=== PATIENT | male | born 1960 | race Caucasian/White ===

== ENCOUNTER → 2020-08-24 13:46 | Outpatient (BNVA) | payer OTHER, SELFPAY | PROVIDERS: Visit Provider Physician Assistant Medical | DX: M20.012 Mallet finger of left finger(s) (principal); S62.605A Fracture of unspecified phalanx of left ring finger, initial encounter for closed fracture; W23.0XXA Caught, crushed, jammed, or pinched between moving objects, initial encounter | CPT/HCPCS: 73130; 99203 ==

== ENCOUNTER 2020-08-25 08:46 | Outpatient (RCR) | payer OTHER, SELFPAY | END 2020-10-10 10:09 | disposition other institution (70) | LOC: HO.OT 08:46 | PROVIDERS: PCP Internal Medicine; Visit Provider Internal Medicine | DX: S62.605D Fracture of unspecified phalanx of left ring finger, subsequent encounter for fracture with routine healing (principal) | CPT/HCPCS: 97165; 97168; 97760 ==

== ENCOUNTER → 2020-09-07 10:51 | Outpatient (BNVA) | payer OTHER, SELFPAY | PROVIDERS: PCP Internal Medicine; Visit Provider Internal Medicine | DX: S62.605A Fracture of unspecified phalanx of left ring finger, initial encounter for closed fracture (principal); X58.XXXA Exposure to other specified factors, initial encounter | CPT/HCPCS: 99213 ==

== ENCOUNTER → 2020-10-07 07:59 | Outpatient (BNVA) | payer OTHER, SELFPAY | PROVIDERS: PCP Internal Medicine; Visit Provider Internal Medicine | DX: S62.605D Fracture of unspecified phalanx of left ring finger, subsequent encounter for fracture with routine healing (principal); X58.XXXD Exposure to other specified factors, subsequent encounter | CPT/HCPCS: 99213 ==

== ENCOUNTER 2020-10-12 08:41 | Outpatient (RCR) | payer OTHER, BC, SELFPAY ==
--- NOTE | 2020-10-12 10:34 | MHC.OT.DC ---
[address] [phone] F: [phone] Occupational Therapy Discharge Note Provider: DR. REID Diagnosis: LEFT RING MALLET INJURY Date of Surgery: Date of Evaluation: 10/12/20 Date of Discharge: 10/12/20 Treatments to Date: 1 Cancellations to Date: No Shows to Date: Discharge Status: Insurance Declined Tx Patient Elected to Stop Discharge Summary: Pt EVALUATED TODAY AND PRACTICE WITH SELF ROM, MONITORING FOR EXT LAG AND INSTRUCTION ON WEANING FROM THE PROTECTIVE SPLINT. HE DEMONSTRATED INDEP WITH SELF MANAGEMENT AFTER INSTRUCTION AND PRACTICE. I ANTICIPATE CONTINUED IMPROVEMENT WITH SELF MANAGEMENT. Electronically Signed By: LIDA WILLIAM OT CHT CLT Reviewed/agree with student documentation: N/A Therapist: Please Sign and return to therapist, thank you for your referral.
--- NOTE | 2020-10-12 10:35 | MHC.OT.OEV ---
[address] [phone] F: [phone] Occupational Therapy Evaluation Diagnosis: LEFT RING MALLET INJURY Date of Onset: 08/23/21 Date of Surgery: Attending Provider: DR. REID Prescribed Treatment: EVAL AND TREAT MD Follow Up Appointment: History of Current Condition: Pt HAD A LEFT HAND CRUSH INJURY TO RING FINGER RESULTING IN A MALLET FINGER. PT SEEN BY OT AND FITTED WITH A CUSTOM MALLET SPLINT. Pt COMPLIANT WITH SPLINT IMMOB AND NOW READY TO BEGIN WEANING FROM THE SPLINT AND PROGRESS ROM. 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 Sleep: WNL Driving: WNL Vision: WNL Balance: WNL Pain Assessment Pain Score: 1 Pain Scale Used: Numeric (0 - 10) Pain Location and Description: L RF PRESSURE Aggravating Factors: BENDING RING FINGER Alleviating Factors: NA Skin and Soft Tissue Assessment Skin and Soft Tissue: Comments: L RF DIP J OA CHANGES Nerve assessment Ulnar Nerve: Median Nerve: Radial Nerve: Comments: WNL Sensory Assessment Temperature: Light Touch: WNL Proprioception: Vibration: Comments: Edema Assessment Upper Extremity: WNL Lower Extremity: Comments: Dexterity Assessment Dexterity: Comments: FDT WNL 22 SEC MILD DIFF WRITING WITH RF SLIGHT EXT Special Tests Comments: AROM(PROM) Strength Cervical Cervical Flexion: Cervical Extension: Cervical Lateral Flexion: Cervical Rotation: Comments: Shoulder Flexion: Extension: Abduction: Internal Rotation: External Rotation: Comments: Flexion: Extension: Abduction: Internal Rotation: External Rotation: Comments: Elbow Flexion: Extension: Pronation: Supination: Comments: Flexion: Extension: Pronation: Supination: Comments: Wrist Flexion: Extension: Ulnar Deviation: Radial Deviation: Comments: Flexion: Extension: Ulnar Deviation: Radial Deviation: Comments: Thumb Thumb CMC Flexion: Thumb MCP Flexion: Thumb IP Flexion: Radial Abduction: Palmar Abduction: Mozier (Kapandji 0-10): Comments: Digits Index MCP: PIP: DIP: Long MCP: PIP: DIP: Ring MCP: PIP: R 80 L 95 DIP: R 50 L 65 Small MCP: PIP: DIP: Comments: Gross Grasp: Lateral Pinch: Two-Point Pinch: Three-Jaw Mitchell: Comments: DEFERRED ON R WFL Patient Education Primary Language: Bulgarian Filtration Operator Required: No Current Knowledge: Minimal, needs reinforcement Teaching Method: Audio/Video Demonstration Handouts Verbal Education Needs Identified on Evaluation: Disease Information Exercise How did patient/family demonstrate learning? Patient demonstrates Patient verbalizes Barriers to Learning: None Readiness for Learning: Who was educated? Patient Comments: Plan of Care Assessment: Pt IS 7 WEEKS IMMOB FOR L RF MALLET INJURY OF HIS DOMINANT HAND. HE IS NOW READY TO PROGRESS TO AROM AND WEANING FROM IMMOB SPLINT BY WK 7. TODAY HE PRESENTS WITH STIFF PIP AND DIP JTS AT THE RING FINGER. HE HAS A GOOD AWARENESS OF JOINT PROTECTION AND VERBALIZES KNOWLEDGE OF SPLINT WEANING AND HEP AFTER INSTRUCTION AND PRACTICE. HE REPORTS CONFIDENCE IN SELF MANAGEMENT TO REGAIN FULL AROM WITHOUT LOSS OF DIPJ EXT. SKILLED OT IS NOT NEEDED AT THIS TIME STG Duration: Short Term Goals: NA LTG Duration: Insurance Producer Goals: NA Frequency and Duration: The patient will be seen NA Treatment Plan: Home Exercise Program SKILLED OT IS NOT RECOMMENDED Electronically Signed By: LIDA WILLIAM OT CHT CLT Reviewed/agree with student documentation: N/A Therapist: Please sign and return to therapist, Thank you for your referral.
== END 2020-10-12 10:38 | disposition other institution (70) ==
LOC: HO.OT 08:41
PROVIDERS: PCP Internal Medicine; Visit Provider Internal Medicine
DX: M20.012 Mallet finger of left finger(s) (principal)
CPT/HCPCS: 97110; 97165